=== PATIENT | female | born 1950 | race American Indian/Alaskan Native ===

== ENCOUNTER 2023-10-01 16:08 | Emergency (ER) | payer BC ==
[~2023-10-01] VITALS: Ht 165.1 cm; Wt 72.6 kg
[2023-10-01] MEDS ORDERED: 0.9 % SODIUM CHLORIDE 1,000 ML IV ONE (20:30)
[2023-10-01 21:10] LABS: ALBUMIN 3.7 gm/dL (3.4-5.0); BILIRUBIN TOTAL 1.27 mg/dL (0.3-1.2); CALCIUM 8.7 mg/dL (8.5-10.1); CREATININE SERUM 0.77 mg/dL (0.55-1.02); GFR 73.28; GLOBULINA 4.2 G/DL (2.4-3.5); POTASSIUM 3.95 mEq/L (3.5-5.1); TOTAL PROTEIN 7.9 gm/dL (6.4-8.2)
[2023-10-01] MEDS ORDERED: OSELTAMIVIR PHOSPHATE 75 MG CAPSULE PO ONE (21:15)
[2023-10-01 21:33] LABS: HEMATOCRIT 32.6 % (36.0-45.00); HEMOGLOBIN 11.1 g/dL (12.0-15.00); MEAN CELL VOLUME 83.3 fL (80.00-100.00); MEAN CORPUSCULAR HEMOGLOBIN 28.4 pg (27.00-32.0); PLATELET COUNT 160 K/uL (150-450); RED BLOOD COUNT 3.91 M/uL (4.00-6.00); RED CELL DISTRIBUTION WIDTH 16.3 % (11.5-14.5)
== END 2023-10-01 22:32 | disposition home or self-care (01) ==
LOC: ER 16:08
PROVIDERS: Emergency Medicine
DX: R53.81 Other malaise (principal); R05.9 Cough, unspecified; Z20.822 Contact with and (suspected) exposure to COVID-19